=== PATIENT | female | born 1945 ===

== ENCOUNTER → 2022-05-23 09:56 | Outpatient (BNVA) | payer MEDICARE, SELFPAY | PROVIDERS: PCP Internal Medicine; Visit Provider Nurse Practitioner Family | DX: C50.912 Malignant neoplasm of unspecified site of left female breast (principal); R51.9 Headache, unspecified; R25.2 Cramp and spasm | CPT/HCPCS: 99202 ==

== ENCOUNTER → 2022-08-05 14:05 | Outpatient (BNVA) | payer MEDICARE, SELFPAY | PROVIDERS: PCP Internal Medicine; Visit Provider Nurse Practitioner Family | DX: R51.9 Headache, unspecified (principal); C50.912 Malignant neoplasm of unspecified site of left female breast; R25.2 Cramp and spasm | CPT/HCPCS: 99212 ==

== ENCOUNTER → 2023-03-31 12:46 | Outpatient (BNVA) | payer MEDICARE, SELFPAY | PROVIDERS: PCP Internal Medicine; Visit Provider Nurse Practitioner Family | DX: M79.641 Pain in right hand (principal); R20.2 Paresthesia of skin; R51.9 Headache, unspecified; R42 Dizziness and giddiness | CPT/HCPCS: 99212 ==

== ENCOUNTER 2024-02-16 12:51 | Outpatient (AMB) | payer MEDICARE, SELFPAY ==
--- NOTE | 2024-02-16 12:56 | A.OFFVIS_ITS ---
Vital Signs 02/16/24 13:09 Height 4 ft 10 in Weight 105 lb BMI 21.9 BP 124/62 Blood Pressure Location Rt brachial Position Sitting Pulse 81 Pulse Source Pulse Oximeter Pulse Oximetry (%) 100 Oxygen Delivery Method Room Air Intake Visit Reasons: 4mo f/u headache-CONF Intake Note: Patient presents for f/u. Continuously having headaches every day, even after doing PT. Allergies No Known Allergies Allergy (Verified 02/16/24 13:02) Medication List - Last Reconciled 02/16/24 by VASILIY Baig anastrozole 1 mg PO DAILY ibuprofen 400 mg PO Q6H PRN 30 days levothyroxine 100 mcg PO DAILY metformin 500 mg PO BID HPI Comments Details: 78-yr-old female presents for f/u visit. Pt denies any significant interval medical changes. Pt notes low right-sided non-radiating back pain and a pushing sensation in her bladder, which started 3-4 weeks. Denies dysuria, hemtaturia, fevers, chills. She did start PT, initially helped but after a few months, she started having the headaches, dizziness and body pains again. She is having cramps and pain in BLE upper and lower legs, especially in her toes and ankles. She notices this mostly when she lies down at night. She tries to walk, but easily feels tired. She reports increasing episodes of sharp brief headache attacks, in different spots around either side of her head. Headache occurs 2-3 x's daily. When she was in [place], she was given Gabapentin. She tried it a few times, but was worried about taking this w/ her other meds. She did see [facility], had RUE EMG/NCS, had RUE injections. She has not had f/u yet as she had to go to [place] to see an ill family memebr. But her hands feel better now. [facility] Medical History (Updated 02/16/24 @ 13:47 by VASILIY Baig) Thyroid cancer Thyroid cancer Surgical History (Updated 02/16/24 @ 13:08 by Jihan Quiroz CMA) History of cholecystectomy Hx of mastectomy Family History Sister Diabetes Cancer Social History Household Members: Family Alcohol intake: never Patient Tobacco Use Status: Never used Tobacco Physical Exam Vital Signs: Last Vital Signs Pulse 81 02/16/24 13:09 BP 124/62 02/16/24 13:09 Pulse Ox 100 02/16/24 13:09 Oxygen Delivery Method Room Air 02/16/24 13:09 BMI result Body Mass Index 21.9 Const General: cooperative and no acute distress Orientation/consciousness: patient oriented x3 Resp Effort & Inspection: normal respiratory effort and able to speak in complete sentences Back/Spine/Pelvis Other: Right mid-lower lateral back tenderness Neuro Other: RLE MS 5/5 LLE MS 5-/5. Very mild chin movements, at times. Decreased LLE foot taps. Decreased LUE arm swing, left shoulder drooped, steady gait. General: patient oriented x3 Cranial nerves: Yes CN's II-XII intact bilaterally Cognition (Neuro): normal cognition Deep tendon reflexes (DTR's): Right patellar reflex intensity grade: 2+ and Left patellar reflex intensity grade: 2+ Psych Appearance: grossly normal Mental Status: mental status grossly normal Speech and movement: Clear speech present Affect: normal affect Attitude: cooperative Assessment & Plan Assessment & Plan (1) Headache: Comment: episodes of sharp pain lasting 1-2 minutes, frontal or occipital region mostly. ? neuralgia, ? central etiology. Code(s): R51.9 - Headache, unspecified Category: Medical (2) Cramps of left lower extremity: Code(s): R25.2 - Cramp and spasm Category: Medical (3) Low back pain: Code(s): M54.50 - Low back pain, unspecified Category: Medical Plan Pt advised to undergo brain MRI w/wo d/t worsening stabbing headaches, dizziness, and increased LE cramps. Check labs for common etiologies of above. Check UA w/ relfex C&S- d/t mid-low back and suprapubic discomfort in setting of increased urinary frequency. Check c-spine XR. XR and lab orders gievn to pt- she will do at [facility]. For cramps: Trial Mag Ox 400mg qhs- may hold for loose stools. Future considerations: Gabapentin. ? For headaches and dizziness: Ibuprofen prn. Future considerations- resuming Amitriptyline or Gabapentin.. For right hand pain: Improved. Will monitor ? f/u upon review of above, and in 6 months or sooner prn. Orders: Orders Erythrocyte Sedimentation Rate Today C50.912 - Malignant neoplasm of unspecified site of left female breast, R25.2 - Cramp and spasm, R42 - Dizziness and giddiness, R51.9 - Headache, unspecified Creatine Kinase Total Today C50.912 - Malignant neoplasm of unspecified site of left female breast, R25.2 - Cramp and spasm, R42 - Dizziness and giddiness, R51.9 - Headache, unspecified Rheumatoid Factor Today C50.912 - Malignant neoplasm of unspecified site of left female breast, R25.2 - Cramp and spasm, R42 - Dizziness and giddiness, R51.9 - Headache, unspecified Homocysteine Today C50.912 - Malignant neoplasm of unspecified site of left female breast, R25.2 - Cramp and spasm, R42 - Dizziness and giddiness, R51.9 - Headache, unspecified Ferritin Today C50.912 - Malignant neoplasm of unspecified site of left female breast, R25.2 - Cramp and spasm, R42 - Dizziness and giddiness, R51.9 - Headache, unspecified Methylmalonic Acid Today C50.912 - Malignant neoplasm of unspecified site of left female breast, R25.2 - Cramp and spasm, R42 - Dizziness and giddiness, R51.9 - Headache, unspecified Magnesium Today C50.912 - Malignant neoplasm of unspecified site of left female breast, R25.2 - Cramp and spasm, R42 - Dizziness and giddiness, R51.9 - Headache, unspecified XR lumbar spine 4V min Today M54.50 - Low back pain, unspecified MR head/brain wo/w con Today C50.912 - Malignant neoplasm of unspecified site of left female breast, R25.2 - Cramp and spasm, R29.818 - Other symptoms and signs involving the nervous system, R42 - Dizziness and giddiness, R51.9 - Headache, unspecified Complete Blood Count Auto Diff Today C50.912 - Malignant neoplasm of unspecified site of left female breast, R25.2 - Cramp and spasm, R42 - Dizziness and giddiness, R51.9 - Headache, unspecified Comprehensive Met. Panel Today C50.912 - Malignant neoplasm of unspecified site of left female breast, R25.2 - Cramp and spasm, R42 - Dizziness and giddiness, R51.9 - Headache, unspecified Vitamin B12 and Folate Today C50.912 - Malignant neoplasm of unspecified site of left female breast, R25.2 - Cramp and spasm, R42 - Dizziness and giddiness, R51.9 - Headache, unspecified CRP High Sensitivity Today C50.912 - Malignant neoplasm of unspecified site of left female breast, R25.2 - Cramp and spasm, R42 - Dizziness and giddiness, R51.9 - Headache, unspecified SPENSER Reflex Titer and Pattern Today C50.912 - Malignant neoplasm of unspecified site of left female breast, R25.2 - Cramp and spasm, R42 - Dizziness and giddiness, R51.9 - Headache, unspecified IRON PROFILE Today C50.912 - Malignant neoplasm of unspecified site of left female breast, R25.2 - Cramp and spasm, R42 - Dizziness and giddiness, R51.9 - Headache, unspecified UA CC w/rflx Micro + Cult Today M54.50 - Low back pain, unspecified, R35.0 - Frequency of micturition, R39.89 - Other symptoms and signs involving the genitourinary system Medications: New magnesium oxide may hold for loose stools 400 mg PO BEDTIME 30 days 30 tabs 6RF Coding Level of Care Code Est Pt Level 4 (49678) Diagnoses Headache R51.9 Cramps of left lower extremity R25.2 Low back pain M54.50
[2024-02-16 13:09] VITALS: BP 124/62; PULSE 81; O2SAT 100; BMI 21.9
== END 2024-02-16 13:56 | disposition home or self-care (01) ==
PROVIDERS: PCP Internal Medicine; Visit Provider Nurse Practitioner Family
DX: R51.9 Headache, unspecified (principal); R25.2 Cramp and spasm; M54.50 Low back pain, unspecified
CPT/HCPCS: 99214

== ENCOUNTER → 2024-02-16 12:51 | Outpatient (BNVA) | payer MEDICARE, SELFPAY | PROVIDERS: PCP Internal Medicine; Visit Provider Nurse Practitioner Family | DX: M54.50 Low back pain, unspecified (principal); R51.9 Headache, unspecified; R25.2 Cramp and spasm | CPT/HCPCS: 99212 ==

== ENCOUNTER 2025-03-25 10:18 | Outpatient (AMB) | payer MEDICARE, BC, SELFPAY ==
--- NOTE | 2025-03-25 10:21 | A.OFFVIS_ITS ---
Vital Signs 03/25/25 10:29 Height 5 ft Weight 110 lb BMI 21.5 BP 140/72 H Blood Pressure Location Rt brachial Position Sitting Pulse 84 Pulse Source Pulse Oximeter Pulse Oximetry (%) 99 Oxygen Delivery Method Room Air Intake Visit Reasons: Follow up Intake Note: Patient presents follow up for headaches. Headaches continue to be persistent. 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 Pt was last seen 02/16/2024. Pt denies any significant interval medical changes. Interval workup: February 2024, Brain MRI w/wo: Unremarkable. Scattered non-specific white matter changes. XR Lumbar: IMPRESSION: 1. Bony demineralization. 2. There is grade 1, 3.7 mm posterior spondylolisthesis of L4 relative to L5. 3. Diffuse degenerative disc disease. 4. Findings consistent with DISH. 5. 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 6. There is evidence of constipation. She reports she is having less frequent episodes of sharp brief headache attacks, in different spots around either side of her head. Headache usually occurs in the morning. She would also like to talk about her hands- she wakes up with her hands clenched and it hurts to open to her hands up. Her hands are also red. Has LUE discomfort s/p left breast mastectomy (Jun 2022) She has not had f/u w/ [facility]- following right trigger finger injections which helped, but they suggested treating carpal tunnel syndrome- but she was not interested in treating this. She has wrist splints but has not been using- when used- she used it during the day. She denies hand numbness, weakness, or swelling. She states her cramps and pain in BLE upper and lower legs are better since starting the Magnesium. Denies tremors. She tries to walk on a treadmill when she is at home in [place]. Pt continues to have low back pain right-sided non-radiating back pain and a pushing sensation in her bladder, which started last year. She is having nocturia- 4-5 x's per night. Pt reports her constipation is better. She is now seeing urology, who has scheduled her to have an ultrasound. She denies snoring. [facility] Medical History (Updated 03/25/25 @ 11:19 by VASILIY Baig) Anemia Thyroid cancer Thyroid cancer Surgical History History of cholecystectomy Hx of mastectomy Family History Sister Diabetes Cancer Social History Household Members: Family Alcohol intake: never Patient Tobacco Use Status: Never used Tobacco Physical Exam Vital Signs: Last Vital Signs Pulse 84 03/25/25 10:29 BP 140/72 H 03/25/25 10:29 Pulse Ox 99 03/25/25 10:29 Oxygen Delivery Method Room Air 03/25/25 10:29 BMI result Body Mass Index 21.5 Const General: cooperative and no acute distress Orientation/consciousness: patient oriented x3 Resp Effort & Inspection: normal respiratory effort and able to speak in complete sentences Back/Spine/Pelvis Other: Right mid-lower lateral back tenderness Neuro Other: Very mild chin movements, at times. Decreased LUE arm swing, left shoulder drooped, steady gait. General: patient oriented x3 Cranial nerves: Yes CN's II-XII intact bilaterally Cognition (Neuro): normal cognition Deep tendon reflexes (DTR's): Right patellar reflex intensity grade: 2+ and Left patellar reflex intensity grade: 2+ Psych Appearance: grossly normal Mental Status: mental status grossly normal Speech and movement: Clear speech present Affect: normal affect Attitude: cooperative Assessment & Plan Assessment & Plan (1) Headache: Comment: episodes of sharp pain lasting 1-2 minutes, frontal or occipital region mostly. ? neuralgia, ? central etiology. Code(s): R51.9 - Headache, unspecified Category: Medical (2) Cramps of left lower extremity: Code(s): R25.2 - Cramp and spasm Category: Medical (3) Low back pain: Code(s): M54.50 - Low back pain, unspecified Category: Medical Plan Reviewed brain MRI w/wo- unremarkable, only mild scattered nonspecific T2 hyperintensities noted. Reviewed L-spine XR- showing degenerative changes. Again we will check labs for common etiologies of can tremor, muscle spasms, joint stiffness. Patient will due within the next week at [facility]- lab slip given to her. For cramps: Continue Mag Ox 400mg qhs- may hold for loose stools. Future considerations: Gabapentin. ? For headaches and dizziness: Tylenol as needed. Patient states she was advised to not take ibuprofen due to her breast cancer recurrence prevention treatment. Future considerations- resuming Amitriptyline or Gabapentin.. For bilateral hand pain: Trial using her wrist splints at night while sleeping. ? f/u upon review of above, and in 6 months or sooner prn. 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, unspecified site, R25.2 - Cramp and spasm, R51.9 - Headache, unspecified Ferritin Today C50.912 - Malignant neoplasm of unspecified site of left female breast, D64.9 - Anemia, unspecified, 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, unspecified site, R25.2 - Cramp and spasm, R51.9 - Headache, unspecified Methylmalonic Acid Today C50.912 - Malignant neoplasm of unspecified site of left female breast, D64.9 - Anemia, unspecified, 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, unspecified site, R25.2 - Cramp and spasm, R51.9 - Headache, unspecified SPENSER Reflex Titer and Pattern Today C50.912 - Malignant neoplasm of unspecified site of left female breast, D64.9 - Anemia, unspecified, 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, unspecified site, R25.2 - Cramp and spasm, R51.9 - Headache, unspecified Magnesium Today C50.912 - Malignant neoplasm of unspecified site of left female breast, D64.9 - Anemia, unspecified, 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, unspecified site, R25.2 - Cramp and spasm, R51.9 - Headache, unspecified Vitamin B12 and Folate Today C50.912 - Malignant neoplasm of unspecified site of left female breast, D64.9 - Anemia, unspecified, 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, unspecified site, R25.2 - Cramp and spasm, R51.9 - Headache, unspecified IRON PROFILE Today C50.912 - Malignant neoplasm of unspecified site of left female breast, D64.9 - Anemia, unspecified, 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, unspecified site, R25.2 - Cramp and spasm, R51.9 - Headache, unspecified Vitamin D 25-OH (D2 and D3) Today C50.912 - Malignant neoplasm of unspecified site of left female breast, D64.9 - Anemia, unspecified, 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, unspecified site, R25.2 - Cramp and spasm, R51.9 - Headache, unspecified C Reactive Protein Today C50.912 - Malignant neoplasm of unspecified site of left female breast, D64.9 - Anemia, unspecified, 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, unspecified site, R25.2 - Cramp and spasm, R51.9 - Headache, unspecified Rheumatoid Factor Today C50.912 - Malignant neoplasm of unspecified site of left female breast, D64.9 - Anemia, unspecified, 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, unspecified site, R25.2 - Cramp and spasm, R51.9 - Headache, unspecified Homocysteine Today C50.912 - Malignant neoplasm of unspecified site of left female breast, D64.9 - Anemia, unspecified, 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
[2025-03-25 10:29] VITALS: BP 140/72; PULSE 84; O2SAT 99; BMI 21.5
--- OUTSIDE RECORDS SUMMARY | 2025-03-25 11:16 | XMS_ITS | Clinical Summary ---
Author Organization [facility] Address [address] [place] [address] Care Team Providers Care Building Drafter Name Role Phone Gerardo Parisi MD Primary Care Provider [phone] Allergies No known active allergies Medications Medication Sig Dispensed Refills Start Date End Date Status metFORMIN (GLUCOPHAGE) tablet 500 mg Take 1 tablet (500 mg total) by mouth 2 (two) times a day with meals. 0 Active levothyroxine (SYNTHROID) tablet 100 mcg Take 1 tablet (100 mcg total) by mouth every morning on an empty stomach. 0 Active vitamin B-12 (CYANOCOBALAMIN) 500 MCG tablet Take 1 tablet (500 mcg total) by mouth daily. 0 Active vitamin D3 (cholecalciferol) 25 MCG (1000 UT) tablet Take 1 tablet (25 mcg total) by mouth daily. 0 Active anastrozole (ARIMIDEX) 1 MG tablet Take 1 tablet (1 mg total) by mouth daily 30 tablet 9 06/17/2024 Active Active Problems No known active problems Social History Tobacco Use Types Packs/Day Years Used Date Smoking Tobacco: Never Smokeless Tobacco: Never Alcohol Use Standard Drinks/Week Comments Never 0 (1 standard drink = 0.6 oz pur e alcohol) Sex and Gender Information Value Date Recorded Sex Assigned at Not on file Gender Identity Not on file Sexual Orientation Not on file Job Start Date Occupation Industry Not on file Not on file Not on file Last Filed Vital Signs Vital Sign Reading Time Taken Comments Blood Pressure 148/87 02/18/2024 11:22 AM EDT Pulse 91 02/18/2024 11:22 AM EDT Temperature 36.6 ??C (97.8 ??F) 02/18/2024 11:22 AM E DT Respiratory Rate - - Oxygen Saturation 99% 02/18/2024 11:22 AM EDT Inhaled Oxygen Concentration - - Weight 48.1 kg (106 lb) 02/18/2024 11:22 AM EDT Height 147.3 cm (4' 10 ) 02/18/2024 11:22 AM EDT Body Mass Index 22.15 02/18/2024 11:22 AM EDT Plan of Treatment Health Maintenance Due Date Last Done Comments Hepatitis C Screening 1945 COVID-19 Vaccine (#1) 03/22/1946 Depression Screening 1957 Preventative Health Evaluation 1963 Shingrix-Zoster Vaccine (1 o f 2) 1995 Fall Risk Assessment 2010 Osteoporosis Screening (DEXA Scan) 2010 RSV Adult > 60+ Yrs or (1 - 1-dose 75+ series) 2020 DTap / Tdap / Td (2 - Td or Tdap) 05/17/2023 05/17/2013 Influenza Vaccine (Season Ended) 2025 Pneumococcal Vaccine Completed 05/12/2017, 04/29/2011 Hepatitis B Vaccines Aged Out No long er eligible based on patient's age to complete this topic RSV Ped < 20 months Aged Out No longe r eligible based on patient's age to complete this topic Care Teams Building Drafter Relationship Specialty Start Date End Date Gerardo Parisi MD [address] [place] [id number] PCP - General Internal Medicine 06/27/22
== END 2025-03-25 11:27 | disposition home or self-care (01) ==
LOC: HO.HSMS 10:20
PROVIDERS: PCP Internal Medicine; Visit Provider Nurse Practitioner Family
DX: R51.9 Headache, unspecified (principal); R25.2 Cramp and spasm; M54.50 Low back pain, unspecified
CPT/HCPCS: 99214

== ENCOUNTER → 2025-03-25 10:18 | Outpatient (BNVA) | payer MEDICARE, BC, SELFPAY | PROVIDERS: PCP Internal Medicine; Visit Provider Nurse Practitioner Family | DX: R51.9 Headache, unspecified (principal); R25.2 Cramp and spasm; M54.50 Low back pain, unspecified | CPT/HCPCS: 99212 ==